=== PATIENT | female | born 1960 | race Caucasian/White ===

== ENCOUNTER 2024-12-20 12:52 | Inpatient (IN) | payer BC, SELFPAY ==
[2024-12-20 13:32] VITALS: BP 128/85; PULSE 67; RESP 18; TEMP 36.8; O2SAT 97; BMI 21.4
--- NOTE | 2024-12-20 13:59 | XR_ITS ---
Examination: PA lateral chest 2 views INDICATIONS: Upright PA lateral chest 2 views Date and time: December 20, 2024 1410 hours INDICATIONS: Headache nausea dizziness beginning 3 days ago. LUNGS: Normal heart size. Lungs are clear. Moderate hyperexpansion Mild thoracic levoscoliosis IMPRESSION: No pneumonia or pulmonary edema
--- NOTE | 2024-12-20 14:00 | EKG_ITS ---
[facility] Test Date: 2024-12-20 Pat Name: NAILA NO Department: Room: - Gender: Female Financial Services Specialist: : 1960 Requested By: Luis F Cruz Order Number: [id number] Reading MD: Luis F Cruz Measurements Intervals [place] Rate: 72 P: 73 WV: 126 QRS: 67 QRSD: 73 T: 59 QT: 384 QTc: 420 Interpretive Statements SINUS RHYTHM Compared to ECG 03/17/2019 10:26:04 No significant changes /store/S0/[id number].pdf
--- NOTE | 2024-12-20 14:04 | PD.EDRME ---
Rapid Medical Screening Exam [facility] Arrival date/time: 12/20/24 12:52 Chief Complaint: Headache Vital signs: Vital Signs Temperature 98.3 F 12/20/24 13:32 Pulse Rate 67 12/20/24 13:32 Respiratory Rate 18 12/20/24 13:32 Blood Pressure 128/85 H 12/20/24 13:32 Pulse Oximetry (%) 97 12/20/24 13:32 Oxygen Delivery Method Room Air 12/20/24 13:32 RME Narrative: 64-year-old female with no previous negative health history presents emergency department with complaint of headache, neck pain, sudden vision loss, numbness and tingling to face and sensation of wanting to relieve herself when the headache occurred. Patient states this occurred around 2 PM then around 8 PM she started having ringing to her bilateral ears that was mildly relieved with Tylenol. She called her doctor's office this morning and was told to go to the emergency department for further care she denies head trauma. She denies shortness of breath or chest pain. Patient attests to this being the worst headache of her life. She denies numbness and tingling to bilateral upper or lower extremity.
[2024-12-20 14:57] LABS: Basophils # (Auto) 0.0 Thou/mm3 (0.0-0.2); Basophils % (Auto) 1 % (0-2.5); Eosinophils # (Auto) 0.1 Thou/mm3 (0.0-0.5); Eosinophils % (Auto) 2 % (0-10); Hematocrit 43.0 % (36.0-46.0); Hemoglobin 14.5 g/dL (12.0-16.0); Immature Granulocytes Auto 0.03 Thou/mm3 (0.00-0.00); Lymphocytes # (Auto) 2.4 Thou/mm3 (1.0-4.8); Lymphocytes % (Auto) 32 % (10-50); Mean Corpuscular HGB Conc 33.7 g/dl (31.0-37.0); Mean Corpuscular Hemoglobin 29.2 pg (25.0-35.0); Mean Corpuscular Volume 87 fL (80-100); Monocytes # (Auto) 0.5 Thou/mm3 (0.0-0.8); Monocytes % (Auto) 6 % (0-12); Neutrophils # (Auto) 4.5 Thou/mm3 (1.8-7.7); Neutrophils % (Auto) 59 % (37-80); Nucleated Red Blood Cell # 0.00 Thou/mm3 (0.00-0.00); Nucleated Red Blood Cell % 0 /100 WBC (0); Platelet Count 242 Thou/mm3 (140-440); RDW Standard Deviation 40.8 fL (36.4-46.3); Red Blood Count 4.96 Miln/mm3 (4.00-5.20); White Blood Count 7.5 Thou/mm3 (3.6-11.0)
[2024-12-20 15:16] LABS: B-Type Natriuretic Peptide < 20 pg/mL (0-100)
[2024-12-20 15:19] LABS: Alanine Aminotransferase 15 U/L (10-49); Albumin, Serum 4.6 gm/dL (3.4-4.8); Albumin/Globulin Ratio 1.4 (1.2-2.2); Alkaline Phosphatase 71 U/L (46-116); Anion Gap 7 (7-16); Aspartate Amino Transferase 22 U/L (0-34); BUN/Creatinine Ratio 11 Ratio (12-20); Bilirubin,Total 0.7 mg/dL (0.3-1.2); Blood Urea Nitrogen 10 mg/dL (9-23); Calcium 9.6 mg/dL (8.3-10.6); Calcium (Corrected) 9.6 mg/dL (8.5-10.1); Carbon Dioxide 28.2 mMol/L (20.0-31.0); Chloride 108 mMol/L (98-107); Creatinine (Component) 0.9 mg/dL (0.6-1.3); Estimated Creatinine Clearance 55.2 mL/min (>60); Globulin 3.2 gm/dL (2.3-3.5); Glucose 102 mg/dL (74-106); Lipase 31 U/L (12-53); Osmolality,Calculated 283 (275-295); Potassium 4.4 mMol/L (3.4-5.1); Sodium 143 mMol/L (136-145); Total Protein 7.8 gm/dL (5.7-8.2); Troponin I < 0.002 ng/mL (0.0-0.045); eGFR > 60 See Note
--- NOTE | 2024-12-20 19:41 | XR_ITS ---
Examination: CTA carotids with intravenous contrast CTA brain, head with intravenous contrast. 2-D sagittal, coronal reconstructions. 3-D reconstructions. Exam date and time: December 20, 2024, 2108 hours INDICATIONS: Head pain and neck pain beginning 3 days ago CTDI: vol (mGy) 10.7 DLP: (mGycm) 408 Technique: Multiple CTA axial brain, head carotid images post intravenous contrast injection 75 cc, Isovue-370. 2-D sagittal, coronal reconstructions. 3-D reconstructions, 3-D post processing including vascular maximum intensity projection images. Low dose protocols were performed. One or more of the following dose reduction techniques were used; automated exposure control, adjustment of the mA and/or KV according to patient size, use of iterative reconstruction technique. Findings: No significant common carotid carotid bifurcation or internal carotid artery stenoses Dominant right vertebral artery with no significant stenoses Juxtasellar supraclinoid portions internal carotid arteries intact Basilar artery posterior cerebral branches fill with no large vessel occlusions Middle cerebral anterior cerebral arteries demonstrate no large vessel occlusions IMPRESSION: No significant neck arterial stenoses No cerebral or large vessel arterial occlusions or thrombus As clinically warranted, consider brain MRI MRA without contrast follow-up
--- NOTE | 2024-12-20 19:42 | XR_ITS ---
Examination: CT brain head without contrast. 2-D sagittal coronal reconstructions Date and time of exam:December 20, 2024, 2106 hours INDICATIONS: Headache dizziness Today CTDI: vol (mGy):44.9 DLP: (mGycm):851 Technique: Multiple CT axial sections of the brain have been obtained, 5 mm slice thickness. Contrast has not been administered. 2-D sagittal, coronal reconstructions have been obtained Low dose protocols were performed. One or more of the following dose reduction techniques were used; automated exposure control, adjustment of the mA and/or KV according to patient size, use of iterative reconstruction technique. Findings: No significant ventricular enlargement. Intra-axial or extra-axial hemorrhage density is not seen. No mass effect or midline shift Basal cisterns are not remarkable. Fourth ventricle is midline. Cranial vault intact. Impression: Negative for acute hemorrhage, mass effect or midline shift As clinically warranted, brain MRI follow-up would best assess for acute ischemic change
--- NOTE | 2024-12-20 20:49 | EDNOTE_ITS ---
ED Headache RME/HPI General Chief Complaint: Headache Stated Complaint: CREWS X 3 days, nausea, lightheaded Time Seen by Provider: 12/20/24 20:50 Arrival date/time: 12/20/24 12:52 RME / HPI RME / HPI Narrative: 64-year-old female with no previous negative health history presents emergency department with complaint of headache, neck pain, sudden vision loss, numbness and tingling to face and sensation of wanting to relieve herself when the headache occurred. Patient states this occurred around 2 PM then around 8 PM she started having ringing to her bilateral ears that was mildly relieved with Tylenol. She called her doctor's office this morning and was told to go to the emergency department for further care she denies head trauma. She denies shortness of breath or chest pain. Patient attests to this being the worst headache of her life. She denies numbness and tingling to bilateral upper or lower extremity. ------- Dr. Friedman?s Main ED Evaluation: 64yo female with a history of TIA presents to the ED for a chief complaint of a headache. Patient states she's had an intermittent headache since Friday at 1400. Patient states when she went to bed on Friday night, she heard a pop and her headache worsened. Patient woke up yesterday and still had her headache, describing it as the worst headache of her life, but reportedly developed neck pain, nausea, and blurry vision. She states her symptoms have not resolved, so she came in for evaluation. Patient denies any fever, chills, vomiting, chest pain, abdominal pain or any other associated symptoms. Patient denies any tobacco, alcohol or illicit drug use. NKA. Related Data Previous Rx's ?Medication ?Instructions ?Recorded meclizine 25 mg tablet 25 mg PO QID PRN dizziness # 14 tabs 03/17/19 hydrocodone 5 mg-acetaminophen 325 1 tab PO BID PRN pa in #20 tabs 04/30/23 mg tablet ibuprofen 600 mg tablet 600 mg PO Q6H #30 tabs 04/30 Allergies Allergy/AdvReac Type Severity Reaction Status Date / Time No Known Allergies Allergy Verified 12/20/24 12:57 Review of Systems Review of Systems Systems Reviewed: All systems reviewed, normal except as documented Past Medical History Past Medical History NEUROLOGIC: Positive Neurological Disorders and Transient Ischemic Attacks (TIA) CARDIAC: Negative Cardiac Disorders or Congestive Heart Failure RESPIRATORY: Positive Pneumonia; Negative Chronic Obstructive Pulmonary Disease (COPD) or Asthma GASTROINTESTINAL: Positive Gastroesophageal Reflux Disease GENITOURINARY: Negative Renal Disease REPRODUCTIVE: Positive Previous Pregnancies MUSCULOSKELETAL: Positive Musculoskeletal Disorders, Arthritis, Rheumatoid Arthritis and Fibromyalgia ENDOCRINE: Negative Diabetes Mellitus Type 1 or Diabetes Mellitus Type 2 HEMATOLOGIC: Positive Anemia; Negative Sickle Cell Disease OTHER HISTORY: Positive Hospitalization Family History FAMILY HISTORY: Positive Family Cardiac Disorders Social History SMOKING STATUS: Never smoker SUBSTANCE USE: other (CBD ) ED Exam Narrative Physical exam: GEN. APPEARANCE: The patient is alert awake oriented X-3 in no distress, lying down comfortably, does not look ill/toxic. Patient has good eye contact. Patient is cooperative. VITALS: All vitals were reviewed and the pulse ox is 97% on room air which is normal according to my interpretation. HEENT: Normocephalic, atraumatic. Pupils are equal and reactive. Oral mucosa is moist. Patent Nares NECK: Supple, nontender, no thyromegaly, no meningismus, no JVD CHEST: Symmetrical, atraumatic, and with equal expansion , Nontender on palpation no deformity and no crepitus. CARDIOVASCULAR: Heart regular rhythm no murmur or gallop rub or extra beats. LUNGS: Clear to auscultation bilaterally with symmetrical chest rise. No laboring tachypnea or wheezing. No intercostal subcostal retraction. No rales and no rhonchi. ABDOMEN: Soft, flat, nontender to palpation, no guarding or rebound tenderness. There are no abnormal masses palpated. Active and normal bowel sounds. EXTREMITIES: Nontender. No edema. No cyanosis. Patient is able to move all 4 extremities well, with full ROM and good CSM. SKIN: Warm and dry, no jaundice or rashes noted. NEURO: Patient is GILL x 4, Cranial nerves II through XII grossly intact. There is no focal neurologic deficits noted. GCS is 15, PNS and MANAGER GAMING appear grossly intact. PSYCHIATRIC: Patient is in normal mood and affect. Course Quality Measures none Orders Category Date Time Status CT Screening NOW Care 12/20/24 14:[address] Screening NOW Care 12/20/24 19:41 Active EKG (ED ONLY) *Do not use* NOW Care 12/20/24 14:[address] angio carotid w head w Stat Exams 12/20/24 19:[address] head/brain wo con Stat Exams 12/20/24 19:42 Completed EKG (ED Only) Stat Exams 12/20/24 14:00 Draft XR chest 2V Stat Exams 12/20/24 13:59 Completed BNP [B-Type Natriuretic Peptide] Stat Lab 12/20/24 14:38 Completed CBC Stat Lab 12/20/24 14:38 Completed CMP [Comprehensive Metabolic Panel] Stat Lab 12/20/24 14:38 Completed Lipase Stat Lab 12/20/24 14:38 Completed Troponin I Stat Lab 12/20/24 14:38 Completed Vital Signs Vital signs: Vital Signs Temperature 98.3 F 12/20/24 13:32 Pulse Rate 67 12/20/24 13:32 Respiratory Rate 18 12/20/24 13:32 Blood Pressure 128/85 H 12/20/24 13:32 Pulse Oximetry (%) 97 12/20/24 13:32 Oxygen Delivery Method Room Air 12/20/24 13:32 Headache MDM Narrative MDM Narrative:: Scribe Attestation: 12/20/24 Danna Ley am scribing for and in the presence of Dr. Friedman. Patient data External records reviewed:: [facility] previous records (Per chart review, patient has no relevant previous ED visit,.) Clinical information provided by:: patient Social determinants that could affect healthcare access:: none Patient has the following chronic illnesses:: none How is presenting disease/condition affected by chronic disease/condition?: uneffected by Evaluation data The following diagnostics were reviewed and interpreted by me:: lab results and radiology exam(s) Lab and/or radiology exams considered but not ordered:: none Interpretation Summary: CBC normal, CMP normal. EKG done at 1406, NSR, rate of 72, normal intervals, nonspecific ST-T changes, no acute ischemia, according to my interpretation. [facility] Report Signed Patient: NAILA NO Record#: [id number] Birthdate: 1960 Age/Sex: 64 / F Location: [facility] Attending Dr: Ordering Physician: Luis F Allen PA-C Date of Service: 12/20/24 Procedure(s): XR chest 2V Accession Number(s): [id number] cc: Sven Mcneil MD; Luis F Allen PA-C~ Examination: PA lateral chest 2 views INDICATIONS: Upright PA lateral chest 2 views Date and time: December 20, 2024 1410 hours INDICATIONS: Headache nausea dizziness beginning 3 days ago. LUNGS: Normal heart size. Lungs are clear. Moderate hyperexpansion Mild thoracic levoscoliosis IMPRESSION: No pneumonia or pulmonary edema Dictated By: Sven Mcneil MD Signed By: <Electronically signed by Sven Mcneil MD in OV> 12/20/24 1438 [facility] Signed Patient: NAILA NO Record#: [id number] Birthdate: 1960 Age/Sex: 64 / F Location: [facility] Attending Dr: Ordering Physician: Gray Pardo PA-C Date of Service: 12/20/24 Procedure(s): CT head/brain wo con Accession Number(s): [id number] cc: Sven Mcneil MD; Yuli Sharma MD; Gray Pardo PA-C~ Examination: CT brain head without contrast. 2-D sagittal coronal reconstructions Date and time of exam:December 20, 2024, 2107 hours INDICATIONS: Headache dizziness Today CTDI: vol (mGy):44.9 DLP: (mGycm):851 Technique: Multiple CT axial sections of the brain have been obtained, 5 mm slice thickness. Contrast has not been administered. 2-D sagittal, coronal reconstructions have been obtained Low dose protocols were performed. One or more of the following dose reduction techniques were used; automated exposure control, adjustment of the mA and/or KV according to patient size, use of iterative reconstruction technique. Findings: No significant ventricular enlargement. Intra-axial or extra-axial hemorrhage density is not seen. No mass effect or midline shift Basal cisterns are not remarkable. Fourth ventricle is midline. Cranial vault intact. Impression: Negative for acute hemorrhage, mass effect or midline shift As clinically warranted, brain MRI follow-up would best assess for acute ischemic change Dictated By: Sven Mcneil MD Signed By: <Electronically signed by Sven Mcneil MD in OV> 12/20/242140 [facility] Signed Patient: NAILA NO Record#: [id number] Birthdate: 1960 Age/Sex: 64 / F [facility] Attending Dr: Ordering Physician: Gray Pardo PA-C Date of Service: 12/20/24 Procedure(s): CT angio carotid w head w Accession Number(s): [id number] cc: Sven Mcneil MD; Yuli Sharma MD; Gray Pardo PA-C~ Examination: CTA carotids with intravenous contrast CTA brain, head with intravenous contrast. 2-D sagittal, coronal reconstructions. 3-D reconstructions. Exam date and time: December 20, 2024, 210 hours INDICATIONS: Head pain and neck pain beginning 3 days ago CTDI: vol (mGy) 10.7 DLP: (mGycm) 408 Technique: Multiple CTA axial brain, head carotid images post intravenous contrast injection 75 cc, Isovue-370. 2-D sagittal, coronal reconstructions. 3-D reconstructions, 3-D post processing including vascular maximum intensity projection images. Low dose protocols were performed. One or more of the following dose reduction techniques were used; automated exposure control, adjustment of the mA and/or KV according to patient size, use of iterative reconstruction technique. Findings: No significant common carotid carotid bifurcation or internal carotid artery stenoses Dominant right vertebral artery with no significant stenoses Juxtasellar supraclinoid portions internal carotid arteries intact Basilar artery posterior cerebral branches fill with no large vessel occlusions Middle cerebral anterior cerebral arteries demonstrate no large vessel occlusions IMPRESSION: No significant neck arterial stenoses No cerebral or large vessel arterial occlusions or thrombus As clinically warranted, consider brain MRI MRA without contrast follow-up Dictated By: Sven Mcneil MD Signed By: <Electronically signed by Sven Mcneil MD in OV> 12/20/242144 Medications / Prescriptions Medications or Prescriptions considered but not ordered:: none Medication administrations:: none Consultations Consultation(s) initiated? (list below): Yes Consultation #1 (Physician, Specialty, Details): Discussed case with Dr. Amaya from neurology regarding consultation. Discussed patients ED course, exam findings, labs, and radiology results. Recommends bringing the patient in for stroke work-up. Time: 22:41 Consultation #2 (Physician, Specialty, Details): Discussed case with the resident physician, attending Dr. Ventura from Hospitalist service regarding admission. Discussed patients ED course, exam findings, labs, and radiology results. The Hospitalist agrees to accept the patient for admission. Time: 23:00 Diagnosis Differential diagnosis headache: other (stroke, TIA, metabolic disturbance, UTI) Most likely diagnosis given after review of the tests above:: see clinical impression below Admission Indicated Admission indicated?: indicated Admission Request Was there a request for admission?: Yes Admission Attestation Admission request attestation: Discussed case with [] from Hospitalist service regarding admission. Discussed patients ED course, exam findings, labs, and radiology results. The Hospitalist [agrees,declines] to accept the patient for admission. Disposition Plan Disposition Plan: Admit Discharge Plan Plan Patient Disposition: Admit Acute Care w/in Hospital Prescriptions/Referrals Prescriptions/Med Rec: No Action meclizine 25 mg tablet 25 mg PO QID PRN (Reason: dizziness) Qty: 14 0RF hydrocodone-acetaminophen 5-325 mg tablet 1 tab PO BID MDD 10 PRN (Reason: pain) Qty: 20 0RF ibuprofen 600 mg tablet 600 mg PO Q6H Qty: 30 0RF Referrals: Yuli Sharma MD [Primary Care Provider] - In 1 week Problem List Clinical Impression: TIA (transient ischemic attack) Patient/Caregiver Discharge Instructions Print Language: Estonian Stand Alone Forms: Muriel Award Info., Patient Portal Info Letter
--- NOTE | 2024-12-20 23:50 | ESHP_ITS ---
Documentation for date of: 12/20/24 HPI History of Present Illness Chief complaint: Headache History of present illness: 64-year-old female with past medical history of fibromyalgia (diet controlled) who presented to the ED due to headache. Patient states that on Friday she was laying down on the bed where she suddenly heard a pop and suddenly developed headache rated a 10 out of 10 in severity, localized frontal temporal region, numbness and tingling to face and sensation of wanting to relieve herself when the headache occurred. Patient denies any aura-like symptoms however does endorse that she did have nausea but no vomiting. She also describes having bilateral blurry vision which is odd for her as she has 20/20 vision since her cataract surgery sometime ago. 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 Patient and who is at her bedside stated the results of those imaging findings were not well-described to them as they did not understand what was going on just that there was ?shrinkage. ER spoke to in-house neurology who recommended admission for the rest of stroke workup. At the time of my evaluation patient states her symptoms have mostly resolved however bilateral blurry vision still persists. At present point in time patient denies any fever, chills, shortness of breath, palpitations, chest pain, nausea, vomiting, recent travel, sick contacts. ED course: ED vitals: BP 120/85, HR 67, O2 sat 97% on room air ED labs: CBC unremarkable, CMP unremarkable, head CT negative for acute hemorrhage, midline shift, mass effect, head/neck CTA negative for LVO, EKG shows sinus rhythm PMHx: As above SX Hx: Bilateral cataract surgery, lipoma removal, arthroscopy Social Hx: Denies cigarette use, denies alcohol use, denies illicit substances including THC FH X: Unknown Review of Systems Review of Systems Systems Reviewed: All systems reviewed, normal except as documented Narrative Review of Systems: All 12 systems reviewed and found negative unless otherwise stated in HPI. Exam Vital Signs Temp Pulse Resp BP Pulse Ox O2 Del Method 98.3 F 67 18 128/85 H 97 Room Air 12/20/24 13:32 12/20/24 13:32 12/20/24 13:32 12/20/24 13:32 12/20/24 13:32 12/20/24 13:32 Narrative Exam Physical Exam GENERAL: NAD, AAOx3 HEENT: Moist mucosa. Eyes open, symmetrical, & clear, blurry vision CARDIO: Heart RRR, no obvious murmurs PULM: No noted coughing/dyspnea CTA B/L, no R/W/R GI: Abdomen soft, nondistended, no pain on palpation. BSx4 SKIN/MSK/EXT: No wounds/rashes/edema/amputations, no pain on palpation. Pedal pulses present B/L NEURO: AAOx3, no focal neuro deficits, able to move all 4 extremities Results: Labs 12/20/24 14:38 12/20/24 14:38 Labs: Short CBC 12/20/24 Range/Units 14:38 WBC 7.5 (3.6-11.0) Thou/mm3 Hgb 14.5 (12.0-16.0) g/dL Hct 43.0 (36.0-46.0) % Plt Count 242 (140-440) Thou/mm3 BMP 12/20/24 14:38 Sodium 143 Potassium 4.4 Chloride 108 H Carbon Dioxide 28.2 BUN 10 Creatinine 0.9 Glucose 102 Calcium 9.6 Cardiac Enzymes 12/20/24 Range/Units 14:38 Troponin I < 0.002 (0.0-0.045) ng/mL Liver Function 12/20/24 Range/Units 14:38 Total Bilirubin 0.7 (0.3-1.2) mg/dL AST 22 (0-34) U/L ALT 15 (10-49) U/L Alkaline Phosphatase 71 (46-116) U/L Albumin 4.6 (3.4-4.8) gm/dL Quality Measures Quality Measures none Medications Home Medications and Allergies Allergies Allergy/AdvReac Type Severity Reaction Status Date / Time No Known Allergies Allergy Verified 12/20/24 12:57 Visit Medications Acetaminophen (Acetaminophen 325 Mg Tablet) 650 mg PO Q6H PRN PRN Reason: Fever >100.4 Stop: 01/19/25 23:41 Acetaminophen (Acetaminophen 500 Mg Tablet) 1,000 mg PO Q6H PRN PRN Reason: PAIN SCALE 1-3 (mild Stop: 01/19/25 23:46 Aspirin (Aspirin Ec 81 Mg Tabec) 81 mg PO QDAY LINDY Stop: 01/20/25 08:59 Atorvastatin Calcium (Atorvastatin Calcium 20 Mg Tablet) 80 mg PO HS LINDY Stop: 01/20/25 20:59 Sodium Chloride (Ns) 1,000 mls @ 75 mls/hr IV .[id number] LINDY Stop: 01/19/25 23:44 Labetalol HCl (Labetalol Inj 5 Mg/Ml Vial 20 Ml) 10 mg IVP Q6H PRN PRN Reason: SBP>220, DBP>110 Stop: 01/19/25 23:41 Ondansetron HCl (Ondansetron Inj 2 Mg/Ml Inj 2 Ml) 4 mg IVP Q6H PRN; Protocol PRN Reason: NAUSEA OR VOMITING Stop: 01/19/25 23:41 Discontinued Medications Aspirin (Aspirin Ec 81 Mg Tabec) 81 mg PO X1 ONE Stop: 12/20/24 23:03 Assessment & Plan Plan 64-year-old female past medical history of fibromyalgia who presents to the ED due to headache. Patient will be admitted for CVA workup. #CVA workup #Headache #Blurry vision #History of TIA On Friday which is the patient's last well-known patient developed a headache described as 10 out of 10 in the frontal temporal region as well as some facial numbness with bilateral blurry vision Last year patient had similar presentation and was seen in [facility] had stroke workup done was discharged on no medications. Patient symptoms have resolved however bilateral blurry vision continues to be present at this time. No tPA was given as patient was out of window CT head negative for acute hemorrhage, midline shift, mass effect Head/neck CTA negative for LVO ED spoke to in-house neurology who recommended admission for rest of stroke workup ? MRI stroke protocol ? Echo with bubble study ? Aspirin 81 mg ? Atorvastatin 80 mg ? IV fluids ? Neurochecks every 4 hours ? Monitor telemetry ? In-house neurology consulted, appreciate recs ? Physical therapy, speech therapy consulted Chronic conditions: #Fibromyalgia Diet controlled per the patient Health Maintenance: Disposition: Telemetry, stroke workup Fluids: NS Feeding: N.p.o. till swallow eval passed Thrombo prophylaxis: SCDs Gastric Ulcer prophylaxis: Not indicated CODE STATUS: Full code Case discussed with my attending Dr. Stormy Zuniga MD PGY-2 Disclaimer: Despite multiple revisions, due to the dictation software being used, the document bellow may not be free of grammatical errors including phonetic/typographic errors. However, this does not deter from our commitment to providing health care in the patient's best interest in mind. Attending Provider Attestation/Addendum 64-year-old female with fibromyalgia, status post cataract surgery comes in for bilateral blurred vision, and diffuse frontal headaches. Patient denies fever. She is not nauseous no vomiting patient has normal CT scan of the brain without contrastShe has no photophobia no phonophobia. She has had headaches before before she was never diagnosed with migraines. Patient will be admitted for TIA. She was referred to neurologist Dr. Amaya who will evaluate her. I discussed with and supervised the resident physician who took care of this patient. I agree with the assessment and plan as above.
[2024-12-21] VITALS (8 sets, daily range): BP systolic 107–138; BP diastolic 72–87; PULSE 58–68; RESP 14–21; TEMP 36.3–36.8; O2SAT 98–100
--- NOTE | 2024-12-21 | XR_ITS ---
Examinations: MRI Brain without intravenous contrast. MRA brain without intravenous contrast. MRA carotids without intravenous contrast 3-D vascular reconstructions Date and time of exam: December 21, 2024, 0646 hours INDICATIONS: Headaches neck pain vision loss numbness and paresthesias in the face today Technique: Multiple axial and sagittal images of the brain have been obtained MRA brain carotid images without contrast obtained, including 3-D postprocessing, vascular maximum intensity projection images Findings: [place] is not enlarged. The optic chiasm and infundibular stalk are not remarkable. Prepontine and interpeduncular cisterns are not enlarged. No localized enlargement of the medulla or magdi. Fourth ventricle and cerebellar tonsils normal in position. Subacute hemorrhage is not seen. Fourth ventricle is midline. Mass in the cerebellopontine angle region is not evident. 7th and 8th nerve complexes exhibits symmetry. Globes are symmetrical with no retro-orbital mass. Increased white matter signal mild Diffusion-weighted images demonstrate no focus of restricted diffusion Mass-effect upon the ventricular system is not identified. MRA carotid images no significant carotid stenoses. MRA brain images no large vessel occlusions Impression: Negative for acute hemorrhage mass effect or midline shift No acute infarct Mild chronic microvascular white matter change No significant carotid stenoses No cerebral large vessel arterial occlusions or thrombus
[2024-12-21] MEDS: ASPIRIN EC 81 MG TABEC PO ×2 (00:05→10:00)
[2024-12-21] MEDS: SODIUM CHLORIDE 0.9% 1000 ML 1,000 ML 75 ML IV (01:49)
[2024-12-21 05:12] LABS: Basophils # (Auto) 0.0 Thou/mm3 (0.0-0.2); Basophils % (Auto) 1 % (0-2.5); Eosinophils # (Auto) 0.1 Thou/mm3 (0.0-0.5); Eosinophils % (Auto) 2 % (0-10); Hematocrit 38.8 % (36.0-46.0); Hemoglobin 13.3 g/dL (12.0-16.0); Immature Granulocytes Auto 0.02 Thou/mm3 (0.00-0.00); Lymphocytes # (Auto) 2.4 Thou/mm3 (1.0-4.8); Lymphocytes % (Auto) 35 % (10-50); Mean Corpuscular HGB Conc 34.3 g/dl (31.0-37.0); Mean Corpuscular Hemoglobin 29.7 pg (25.0-35.0); Mean Corpuscular Volume 87 fL (80-100); Monocytes # (Auto) 0.7 Thou/mm3 (0.0-0.8); Monocytes % (Auto) 10 % (0-12); Neutrophils # (Auto) 3.6 Thou/mm3 (1.8-7.7); Neutrophils % (Auto) 52 % (37-80); Nucleated Red Blood Cell # 0.00 Thou/mm3 (0.00-0.00); Nucleated Red Blood Cell % 0 /100 WBC (0); Platelet Count 232 Thou/mm3 (140-440); RDW Standard Deviation 41.0 fL (36.4-46.3); Red Blood Count 4.48 Miln/mm3 (4.00-5.20); White Blood Count 6.9 Thou/mm3 (3.6-11.0)
[2024-12-21 05:34] LABS: Alanine Aminotransferase 14 U/L (10-49); Albumin, Serum 4.2 gm/dL (3.4-4.8); Albumin/Globulin Ratio 1.6 (1.2-2.2); Alkaline Phosphatase 62 U/L (46-116); Anion Gap 5 (7-16); Aspartate Amino Transferase 18 U/L (0-34); BUN/Creatinine Ratio 14 Ratio (12-20); Bilirubin,Total 0.6 mg/dL (0.3-1.2); Blood Urea Nitrogen 14 mg/dL (9-23); Calcium 8.9 mg/dL (8.3-10.6); Calcium (Corrected) 8.9 mg/dL (8.5-10.1); Carbon Dioxide 28.2 mMol/L (20.0-31.0); Cardiac Risk Estimate 4.3 RATIO (3.7-5.6); Chloride 110 mMol/L (98-107); Cholesterol 216 mg/dL (132-200); Creatinine (Component) 1.0 mg/dL (0.6-1.3); Estimated Creatinine Clearance 49.7 mL/min (>60); Globulin 2.7 gm/dL (2.3-3.5); Glucose 94 mg/dL (74-106); HDL Cholesterol 50 mg/dL (40-60); LDL Cholesterol,Calculated 128 mg/dL (0-130); Magnesium 2.4 mg/dL (1.6-2.6); Osmolality,Calculated 285 (275-295); Phosphorous 4.3 mg/dL (2.4-5.1); Potassium 4.3 mMol/L (3.4-5.1); Sodium 143 mMol/L (136-145); Thyroid Stimulating Hormone 3.20 uIU/mL (0.55-4.78); Total Protein 6.9 gm/dL (5.7-8.2); Triglycerides 190 mg/dL (30-150); eGFR > 60 See Note
[2024-12-21] MEDS: LORazepam 2 MG/ML VIAL 0.5 MG IVP (08:12)
[2024-12-21 08:37] LABS: Glucose Estimated Average 105 mg/dL (80-131); Hemoglobin A1C 5.3 % Hgb (4.8-6.0)
--- NOTE | 2024-12-21 08:53 | PC.NURSE ---
Repot called to BARBARA Chisholm in tele. No further questions. Patient back from MRI
--- NOTE | 2024-12-21 09:51 | PCS.ST ---
Swallow Evaluation not warranted at this time. NO neuro deficits. Passed NSS. Regular diet. Baseline cognitive/communication.
--- NOTE | 2024-12-21 13:55 | ESPR_ITS ---
<Statement entered by Georgina Kendall MD - 12/21/24 20:32> I have reviewed the note and agree with the resident's assessment & plan with exceptions as below. I have personally reviewed labs, imaging, home meds/prior records, examined the patient, formulated and discussed management plan with the IM team. Patient examined at bedside today. She is a 64-year-old female with previous history of migraines and headaches. Patient had further workup for CVA rule out in which MRI came back negative for any LVO or cerebral infarct at this time including hemorrhage. Patient will continue with aspirin and high intensity statin. Pending further neuro recs and speech eval and physical therapy. Patient did say that she was getting worked up for a lung mass outpatient in which she had a PET scan recently but did not have a biopsy. Will continue management for stroke rule out as intractable migraine is likely on our differential and or possible TIA as she has resolved symptoms at this time symptoms appear to be global rather than focal at this time. Will continue current management. Repeat hematology and chemistry in a.m. Georgina Kendall, PGY-2 Documentation for date of: 12/21/24 Subjective Subjective Interval history: Patient examined at bedside. No overnight events. Patient's headache had improved from initial sx onset 2 days ago from 04/01 to 07/02. Patient still experiencing occasional headaches at random times throughout the day. Patient endoses slight numbness to right side of face as well as right lower extremity below the right knee. Patient also states the bilateral blurry vision is improving. Patient denies any fever, chills, SOB, palpitations, chest pain, vomiting. Patient states lung mass was found last year when she was being worked up for a similar CVA presentation. Exam Vital Signs Temp Pulse Resp BP Pulse Ox O2 Del Method 97.3 F 62 21 H 107/80 99 Room Air 12/21/24 12:12/21/24 12:12/21/24 12:12/21/24 12:12/21/24 12:12/21/24 12:00 Narrative Exam General: Alert & Oriented x3, not in acute distress, lao speaking, normal BMI HEENT: ROBERTO, EOI, moist mucous membranes, patent nares, no goitre present Cardio: RRR, S1+S2, +2 radial pulse, no murmurs/rubs/gallops Resp: No cough, Bilat air entry, no accessory muscle use Abdo: Soft, non-tender, no distension, no masses present, BS present x4 Neuro: No focal neuro deficits, slight numbness to right side of face and right lower extremity below the right patella, no motor deficits, moving all 4 limbs well Psych: No flight of ideas, cooperative, not anxious Objective Labs 12/22/24 06:23 12/22/24 06:23 Labs: Laboratory Results - last 24 hr 12/20/24 12/21/24 14:38 04:37 WBC 7.5 6.9 RBC 4.96 4.48 Hgb 14.5 13.3 Hct 43.0 38.8 MCV 87 87 MCH 29.2 29.7 MCHC 33.7 34.3 RDW Std Deviation 40.8 41.0 Plt Count 242 232 Neut % (Auto) 59 52 Lymph % (Auto) 32 35 [place] % (Auto) 6 10 Eos % (Auto) 2 2 Baso % (Auto) 1 1 Neut # (Auto) 4.5 3.6 Lymph # (Auto) 2.4 2.4 [place] # (Auto) 0.5 0.7 Eos # (Auto) 0.1 0.1 Baso # (Auto) 0.0 0.0 Immature Gran # (Auto) 0.03 H 0.02 H Absolute Nucleated RBC 0.00 0.00 Immature Gran % 0 0 Nucleated RBC % 0 0 Sodium 143 143 Potassium 4.4 4.3 Chloride 108 H 110 H Carbon Dioxide 28.2 28.2 Anion Gap 7 5 L BUN 10 14 Creatinine 0.9 1.0 Estim Creat Clear Calc 55.2 L 49.7 L eGFR > 60 > 60 BUN/Creatinine Ratio 11 L 14 [address]ucose [address] Glu mg/dL 105 Hemoglobin A1c 5.3 Calculated Osmolality 283 285 Calcium 9.6 8.9 Corrected Calcium 9.6 8.9 Phosphorus 4.3 Magnesium 2.4 Total Bilirubin 0.7 0.6 AST 22 18 ALT 15 14 Alkaline Phosphatase 71 62 Troponin I < 0.002 B-Natriuretic Peptide < 20 Total Protein 7.8 6.9 Albumin 4.6 4.2 Globulin 3.2 2.7 Albumin/Globulin Ratio 1.4 1.6 Triglycerides 190 H Cholesterol 216 H LDL Cholesterol, Calc 128 HDL Cholesterol 50 Cholesterol/HDL Ratio 4.3 Lipase 31 TSH 3.20 Quality Measures Quality Measures none Assessment & Plan Assessment Current Active Medications: Generic Name Dose Route Start Last Admin Trade Name Freq PRN Reason Stop Dose Admin Acetaminophen 650 mg 12/20/24 23:42 Acetaminophen 325 Mg Tablet PO 01/19/25 23:41 Q6H PRN Fever >100.4 Acetaminophen 1,000 mg 12/20/24 23:47 Acetaminophen 500 Mg Tablet PO 01/19/25 23:46 Q6H PRN PAIN SCALE 1-3 (mild Aspirin 81 mg 12/21/24 09:00 12/21/24 10:00 Aspirin Ec 81 Mg Tabec PO 01/20/25 08:59 81 mg QDAY LINDY Administration Atorvastatin Calcium 80 mg 12/21/24 21:00 Atorvastatin Calcium 20 Mg Tablet PO 01/20/25 20:59 HS LINDY Labetalol HCl 10 mg 12/20/24 23:42 Labetalol Inj 5 Mg/Ml Vial 20 Ml IVP 01/19/25 23:41 Q6H PRN SBP>220, DBP>110 Ondansetron HCl 4 mg 12/20/24 23:42 Ondansetron Inj 2 Mg/Ml Inj 2 Ml IVP 01/19/25 23:41 Q6H PRN NAUSEA OR VOMITING Protocol Plan Assessment 64-year-old female past medical history of fibromyalgia who is admitted for CVA workup. #CVA workup, ruled-out #Headache - improving #Blurry vision - improving #History of TIA On Friday which is the patient's last well-known patient developed a headache described as 10 out of 10 in the frontal temporal region as well as some facial numbness with bilateral blurry vision. Last year patient had similar presentation and was seen in [facility] had stroke workup done was discharged on no medications. Patient symptoms have resolved however bilateral blurry vision continues to be present at this time. No tPA was given as patient was out of window CT head negative for acute hemorrhage, midline shift, mass effect Head/neck CTA negative for LVO ED spoke to in-house neurology who recommended admission for rest of stroke workup MRA carotid images show no significant carotid stenoses MRA brain images show no large vessel occlusions Plan: ? In-house neurology consulted, appreciate recs ? Echo with bubble study - follow-up ? Aspirin 81 mg - continue ? Atorvastatin 80 mg - continue ? Neurochecks every 4 hours ? Monitor telemetry ? Physical therapy, speech therapy consulted #Hx of Lung Mass Noticed last year when being worked up for CVA. Plan: ? Outpatient follow up with PCP Chronic conditions: #Fibromyalgia Diet controlled per the patient Health Maintenance: Disposition: Telemetry, stroke workup Feeding: regular Thrombo prophylaxis: SCDs Gastric Ulcer prophylaxis: Not indicated CODE STATUS: Full code Case discussed with my attending Dr. Love, and senior resident Dr. Enoch Gasca MD PGY-1 Attending Provider Attestation/Addendum I attest that I was physically present for the evaluation, physical examination, lab and imaging review of the patient with the residents. I discussed the case with the residents and agree with the findings and plans of care as documented above. Patient is a 64 years old female with past medical history of Fibromyalgia and Migraine headache presented with cmplaint of severe headache, facial droop was admitted overnight to rule out CVA/TIA. At bedside today patient states that she is feeling well and her headache has improved. Denies any new complaints, has been able to eat well and ambulate. No focal neurological deficit on exam. Vitals and lab results are stable. Continues to be on aspirin and atorvastatin. Awaiting nerology recommendation and Echocardiography results. Jazmin Love MD
--- NOTE | 2024-12-21 16:02 | PC.PT ---
PT eval only. Patient is xI with bed mobility, transfers, and ambulation. Patient is safe to ambulate to the bathroom and in the halls with no AD or staff assist. RN made aware.
[2024-12-21] MEDS: ATORVASTATIN CALCIUM 20 MG TABLET 80 MG PO (21:14)
--- NOTE | 2024-12-21 23:43 | ECHO_ITS ---
Transthoracic Echo Report Ht (in): 64 Wt (lb): 125 Exam Location: Echo Lab Status: O Geochemical Manager: Danika Vance Indications: Procedure Performed: BP: 123 / 78 HR: 68 Technical Quality: Adequate MEASUREMENTS (Male / Female) Normal Values 2D ECHO LV Diastolic Diameter PLAX 4.6 cm 4.2 - 5.9 / 3.9 - 5.3 cm LV Systolic Diameter PLAX 3.3 cm IVS Diastolic Thickness 0.5 cm 0.6 - 1.0 / 0.6 - 0.9 cm LVPW Diastolic Thickness 0.6 cm 0.6 - 1.0 / 0.6 - 0.9 cm LV Relative Wall Thickness 0.2 LVOT Diameter 1.8 cm LA Volume Index 21.8 cm?/m? 16 - 28 cm?/m? DOPPLER AV Peak Velocity 144.0 cm/s AV Peak Gradient 8.3 mmHg LVOT Peak Velocity 143.0 cm/s LVOT Peak Gradient 8.2 mmHg AV Area Cont Eq pk 2.5 cm? MV Area PHT 3.1 cm? Mitral E Point Velocity 103.0 cm/s Mitral A Point Velocity 94.6 cm/s Mitral E to A Ratio 1.1 LV E' Lateral Velocity 10.7 cm/s Mitral E to LV E' Lateral Ratio 9.6 LV E' Septal Velocity 8.4 cm/s Mitral E to LV E' Septal Ratio 12.3 TR Peak Velocity 203.0 cm/s TR Peak Gradient 16.5 mmHg PV Peak Velocity 147.0 cm/s PV Peak Gradient 8.6 mmHg FINDINGS Left Ventricle Normal left ventricular size, wall thickness, systolic function with no obvious regional wall motion abnormalities. Normal left ventricular diastolic filling pattern for age. The ejection fraction is visually estimated at 65 %. Right Ventricle The right ventricle is normal in size and systolic function. The estimated right ventricular systolic pressure, 16 mmHg. RAP 5mmHg. Left Atrium The left atrium is normal by two-dimensional, color flow and Doppler imaging with no structural abnormalities, no thrombus formation present. Right Atrium The right atrium is normal by two-dimensional imaging, color flow and Doppler imaging with no structural abnormalities, no thrombus formation present. Atrial Septum The interatrial septum appears normal with no evidence of a shunt. Aorta The aorta is normal by two-dimensional, color flow and Doppler interrogation. Mitral Valve The mitral valve is normal by two-dimensional, color flow and Doppler interrogation. There is no significant mitral valve regurgitation, stenosis or prolapse. Aortic Valve The aortic valve is trileaflet and normal by two-dimensional, color flow and Doppler interrogation. There is no significant aortic valve regurgitation. Tricuspid Valve The tricuspid valve is normal by two-dimensional, color flow and Doppler interrogation. There is trace tricuspid regurgitation. Pulmonic Valve The pulmonic valve is not well visualized. There is no significant pulmonic valve regurgitation. Vessels The pulmonary artery appears normal. The inferior vena cava pulmonary and hepatic veins appear normal. Pericardium The pericardium is normal by two-dimensional imaging. There is no significant pericardial effusion. CONCLUSIONS Indications: Stroke Bubble study negative for PFO or ASD. Consider DMITRY if high index of clinical suspicion. Normal LV size and function. Estimated EF 60-65%. Normal diastolic function. Normal RV size and function. RVSP 16mmHg. RAP 5mmHg. Trace TR. No Pericardial Effusion. Augusto Watson (Electronically Signed) Final Date: 22 December 2024 13:21
[2024-12-22] VITALS: BP 94/66; PULSE 62; PULSE 68; RESP 17; TEMP 36.4; O2SAT 99
[2024-12-22 04:00] VITALS: BP 111/73; PULSE 60; PULSE 96; RESP 19; TEMP 36.1; O2SAT 99
[2024-12-22 06:00] VITALS: BMI 21.4
--- NOTE | 2024-12-22 06:46 | PD.NEUROPROG ---
Documentation for date of: 12/22/24 Subjective Subjective Interval history: Patient was seen in [facility] at the bedside with her family. Denies any headache dizziness nausea vomiting she is able to tolerate oral diet. Exam - Neurology Vital Signs Temp Pulse Resp BP Pulse Ox O2 Del Method 97.0 F 60 19 111/73 99 Room Air 12/22/24 04:00 12/22/24 04:00 12/22/24 04:00 12/22/24 04:00 12/22/24 04:00 12/22/24 04:00 Narrative Exam GENERAL APPEARANCE: Well hydrated, well-nourished in no acute distress. HEENT: Normocephalic, atraumatic, extraocular movements intact. Pupils: Equal reacting to light and accommodation NECK: Supple, no JVD or bruits. CARDIOVASULAR: Heart: S1, S2 heard, regular without S3-S4 or murmur no rubs or gallops. LUNGS/CHEST: Clear to auscultation bilaterally. No rails, rhonchi, or wheezing. Normal inspection. ABDOMEN: Soft, nontender, with normal bowel sounds. No pulsatile masses. No rebound, rigidity, or guarding. Normal inspection and palpation. EXTREMITIES: Normal inspection and palpation. No edema, clubbing or cyanosis. SKIN: Warm and dry without rashes. Normal inspection. MUSCULOSKELETAL: No cervical, thoracic, lumbar or midline bony tenderness. Normal inspection. NEURO: Alert, awake and oriented x3. Cranial nerves: II through XII grossly intact. Speech and language: Normal with no dysarthria or dysphasia. Motor system: Tone and bulk: Normal: Strength: 5 out of 5 in all 4 extremities; No pronator drift noted. Deep tendon reflexes: 2+ bilaterally symmetrical. Plantar reflex: Downgoing bilaterally. Sensory system: Intact to all modalities of sensation bilaterally. Coordination: Intact to [id number] and [id number] test bilaterally. No ataxia, no dysmetria, or dysdiadochokinesia noted. No intention tremors noted. Gait: Normal. Toe, heel, tandem walk all are normal. Romberg: Negative. No signs of meningeal irritation noted. PSYCHIATRIC: Normal mood and affect. Objective Labs 12/21/24 04:37 12/21/24 04:37 Labs: Laboratory Results - last 24 hr 12/21/24 04:[address] Glu mg/dL 105 Hemoglobin A1c 5.3 Assessment & Plan Assessment and plan (1) TIA (transient ischemic attack): Status: Resolved Assessment and plan: no focal deficit on exam no recurrences reported W/u is negative so far including CT, CTA and MRI and MRA head and neck, FU with Echo Continue ASA and statin
[2024-12-22 06:51] LABS: Basophils # (Auto) 0.0 Thou/mm3 (0.0-0.2); Basophils % (Auto) 1 % (0-2.5); Eosinophils # (Auto) 0.1 Thou/mm3 (0.0-0.5); Eosinophils % (Auto) 3 % (0-10); Hematocrit 40.3 % (36.0-46.0); Hemoglobin 13.9 g/dL (12.0-16.0); Immature Granulocytes Auto 0.01 Thou/mm3 (0.00-0.00); Lymphocytes # (Auto) 1.9 Thou/mm3 (1.0-4.8); Lymphocytes % (Auto) 37 % (10-50); Mean Corpuscular HGB Conc 34.5 g/dl (31.0-37.0); Mean Corpuscular Hemoglobin 29.1 pg (25.0-35.0); Mean Corpuscular Volume 84 fL (80-100); Monocytes # (Auto) 0.5 Thou/mm3 (0.0-0.8); Monocytes % (Auto) 11 % (0-12); Neutrophils # (Auto) 2.5 Thou/mm3 (1.8-7.7); Neutrophils % (Auto) 49 % (37-80); Nucleated Red Blood Cell # 0.00 Thou/mm3 (0.00-0.00); Nucleated Red Blood Cell % 0 /100 WBC (0); Platelet Count 215 Thou/mm3 (140-440); RDW Standard Deviation 39.6 fL (36.4-46.3); Red Blood Count 4.78 Miln/mm3 (4.00-5.20); White Blood Count 5.1 Thou/mm3 (3.6-11.0)
[2024-12-22 07:38] LABS: Alanine Aminotransferase 13 U/L (10-49); Albumin, Serum 4.2 gm/dL (3.4-4.8); Albumin/Globulin Ratio 1.5 (1.2-2.2); Alkaline Phosphatase 68 U/L (46-116); Anion Gap 7 (7-16); Aspartate Amino Transferase 19 U/L (0-34); BUN/Creatinine Ratio 16 Ratio (12-20); Bilirubin,Total 0.9 mg/dL (0.3-1.2); Blood Urea Nitrogen 14 mg/dL (9-23); Calcium 9.2 mg/dL (8.3-10.6); Calcium (Corrected) 9.2 mg/dL (8.5-10.1); Carbon Dioxide 25.4 mMol/L (20.0-31.0); Chloride 109 mMol/L (98-107); Creatinine (Component) 0.9 mg/dL (0.6-1.3); Estimated Creatinine Clearance 55.2 mL/min (>60); Globulin 2.8 gm/dL (2.3-3.5); Glucose 98 mg/dL (74-106); Magnesium 2.3 mg/dL (1.6-2.6); Osmolality,Calculated 281 (275-295); Phosphorous 4.2 mg/dL (2.4-5.1); Potassium 4.2 mMol/L (3.4-5.1); Sodium 141 mMol/L (136-145); Total Protein 7.0 gm/dL (5.7-8.2); eGFR > 60 See Note
[2024-12-22 08:00] VITALS: BP 115/80; PULSE 67; RESP 18; TEMP 36.2; O2SAT 99
[2024-12-22] MEDS: ASPIRIN EC 81 MG TABEC PO (09:00)
[2024-12-22 10:22] VITALS: PULSE 67
[2024-12-22 12:00] VITALS: BP 123/81; PULSE 68; RESP 18; TEMP 36.2; O2SAT 99
--- NOTE | 2024-12-22 15:07 | PC.SS ---
Patient is alert/oriented. Patient was able to verify demographics. Patient is independent with ADL's. Patient is from home and resides with her . Patient was admitted for a CVA work up. Notes indicate that patient had a TIA. Patient had a PT and speech eval and was independent. Patient has an echo which was read and negative. Patient to d/c home today. [facility]acy: [facility] PCP: Dr. Edith Roldan in [place]. Last appt. is 6 months ago. D/c plan is to return home. Family/friends to provide transport for apple picker. Alt medical decision maker: Saleem, ,
[2024-12-22 16:00] VITALS: BP 132/90; PULSE 70; RESP 18; TEMP 36.5; O2SAT 99
--- NOTE | 2024-12-22 17:19 | ESDS_ITS ---
<Statement entered by Georgina Kendall MD - 12/23/24 16:43> I have reviewed the note and agree with the resident's assessment & plan with exceptions as below. I have personally reviewed labs, imaging, home meds/prior records, examined the patient, formulated and discussed management plan with the IM team. Pt was discharged with discharge instructions outlined in dc summary. Pt could of experienced severe migraine, however, recommended to continue ASA and high intensity statin outpatient. Pt recommended to follow up neurology outpatient, and possibly consider migraine prophylactic medicine after discussion with PCP. Georgina Kendall, PGY-2 Planned Discharge Date 12/22/24 DS: Providers Provider Date of admission: 12/20/24 23:45 Primary care physician: Yuli Sharma MD Admitting Provider: Boubacar Burrows MD Attending Provider on Admission: Jazmin Love MD Consults: 12/20/24 23:43 Consult to Neurology / Tele-Neurology Routine Comment: Consulting Provider: Blade Amaya Referral Physical Therapy Routine Comment: Physician Instructions: Referral Speech Therapy Routine Comment: Attending Provider on DC: Jazmin Love MD Discharging Provider: Jazmin Love MD DS: Diagnosis Problem List Completed Was Problem List Reviewed/Reconciled?: Yes Hospital Course Hospital Course Hospital course: Claudia is a 64-year-old female past medical history of fibromyalgia and hx of TIA who was admitted for CVA rule out. Pt had arrived to the ED with a BP 120/85, HR 67, O2 sat 97% on room air. Pt was worked up and was found to have CBC unremarkable, CMP unremarkable, head CT negative for acute hemorrhage, midline shift, mass effect, head/neck CTA negative for LVO, EKG shows sinus rhythm. In house neuro was consulted whom had recommended admission for further workup. MR brain stroke protocol was negative no any LVO or acute CVA. Pt also had echo bubble study performed which showed negative for PFO or ASD. EF 60-65%, Normal diastolic function. Cardiac stratification showed Cholesterol 216, normal TSH and A1c. Neuro evaluated pt who recommended ASA and Lipitor 80 mg HS. Pt was told to discussed with PCP in regards to possiblity starting migraine medicine as she experiences this outpatient. It is possible that pt could of experienced a severe migraine. Pt did mention she has a history of a lung mass that she is following outpatient for. Pt was then discharged after speech and physical therapy clearance with the following instructions. Discharge Instructions: Follow up with PCP within one week Follow up with neurology, Dr. Amaya , within one week as you experienced a possible TIA while in the hospital. Call her office to make an appointment Take Medicines as prescribed Talk with PCP about starting Migraine prophylaxis medicine Return to ER if your symptoms worsen or return Problem List: #TIA #Migraine #CVA, ruled out #Hx of Lung Mass #Fibromyalgia Patient seen and care discussed with my attending physician, Dr. Love, and my senior resident, Dr. Enoch Gasca, PGY-1 Time Spent with Patient Time attestation: Total time spent providing and/or coordinating discharge services: Time spent: Less than 30 minutes Exam Vital Signs Temp Pulse Resp BP Pulse Ox O2 Del Method 97.1 F 68 18 123/81 99 Room Air 12/22/24 12:00 12/22/24 12:12/22/24 12:12/22/24 12:00 12/22/24 12:00 12/22/24 12:00 Narrative Exam General: Alert & Oriented x3, not in acute distress, chadian speaking, normal BMI HEENT: ROBERTO, EOI, moist mucous membranes, patent nares, no goitre present Cardio: RRR, S1+S2, +2 radial pulse, no murmurs/rubs/gallops Resp: No cough, Bilat air entry, no accessory muscle use Abdo: Soft, non-tender, no distension, no masses present, BS present x4 Neuro: No focal neuro deficits, slight numbness to right side of face and right lower extremity below the right patella, no motor deficits, moving all 4 limbs well Psych: No flight of ideas, cooperative, not anxious Discharge Plan Plan Patient Disposition: HOME (Self Care) Care Plan Goals: Discharge Instructions Follow up with PCP within one week Follow up with neurology, Dr. Amaya , within one week as you experienced a possible TIA while in the hospital. Call her office to make an appointment Take Medicines as prescribed Talk with PCP about starting Migraine prophylaxis medicine Return to ER if your symptoms worsen or return Prescriptions/Referrals Prescriptions/Med Rec: No Action No Known Home Medications Referrals: Yuli Sharma MD [Primary Care Provider] - Patient/Caregiver Discharge Instructions Discharge Activity: activity as tolerated Education Materials: Discharge Instructions for Stroke, ED Headache, Migraine, Classic, ED TIA: Transient Ischemic Attack Print Language: Thai Stand Alone Forms: Muriel Award Info., Patient Portal Info Letter Discharge Order Discharge Orders: Discharge (Routine); Ordered 12/22/24 Ordered By: Georgina Kendall Quality Discharge Quality Measures VTE prophylaxis (SCDs) Attestestation MD Attestation I attest that I was physically present for the evaluation, physical examination, lab and imaging review of the patient with the residents. I discussed the case with the residents and agree with the findings and plans of care as documented above. Jazmin Love MD
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
== END 2024-12-22 18:18 | disposition home or self-care (01) | DRG 69 ==
LOC: SERX 23:03 → SERHOLD 12-21 00:05 → S2NX 12-21 09:07 → S3NX 12-21 16:49
PROVIDERS: Physician Assistant; Student in an Organized Health Care Education/Training Program; Admitting Provider Internal Medicine; Emergency Provider Emergency Medicine; PCP Family Medicine; Visit Provider Student in an Organized Health Care Education/Training Program
DX: G45.9 Transient cerebral ischemic attack, unspecified (principal); H53.8 Other visual disturbances; R29.810 Facial weakness; M79.7 Fibromyalgia; G43.909 Migraine, unspecified, not intractable, without status migrainosus; R91.8 Other nonspecific abnormal finding of lung field; H54.7 Unspecified visual loss; Z86.73 Personal history of transient ischemic attack (TIA), and cerebral infarction without residual deficits; Z98.49 Cataract extraction status, unspecified eye
CPT/HCPCS: 36415; 70450; 70496; 70498; 70544; 71046; 80053; 80061; 83036; 83690; 83735; 83880; 84100; 84443; 84484; 85025; 93005; 93225; 93306; 96374; 97161; 99285; A4649; J2060; J7030; Q9967; A9270

== ENCOUNTER → 2025-06-13 | Outpatient (CLI) | payer BC, SELFPAY ==
--- NOTE | 2025-06-13 16:00 | XR_ITS ---
Examination: Screening digital mammography, bilateral Computer aided detection 3-D breast Tomosynthesis, bilateral Date and time of exam: June 13, 2025, 1606 hours, comparison September 27, 2021 Indication: Screening Technique: Nonmagnified MLO, CC views of the breasts to been obtained, reconstructed from 3-D Tomosynthesis images. R2 computer aided detection program utilized for evaluation of suspicious masses and/or abnormal calcifications. 3-D Tomosynthesis images obtained. Findings: The breasts are heterogeneously dense, which may obscure small masses 5 mm nodule inner right breast, partially indistinct margins Benign calcifications Impression: BI-RADS Category 0: Incomplete: Need additional imaging evaluation Recommend follow-up spot tomographic views of nodule inner right breast as well as bilateral breast sonography to complete
== END | disposition home or self-care (01) ==
LOC: CDIM 15:14
PROVIDERS: Referring Provider Physician Assistant Medical; Visit Provider Physician Assistant Medical
DX: Z12.31 Encounter for screening mammogram for malignant neoplasm of breast (principal); R92.8 Other abnormal and inconclusive findings on diagnostic imaging of breast; N63.10 Unspecified lump in the right breast, unspecified quadrant
CPT/HCPCS: 77063; 77067